=== PATIENT | female | born 2005 | race Caucasian/White ===

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

== ENCOUNTER 2025-06-22 13:09 | Emergency (ER) | payer BC, SELFPAY ==
[2025-06-22 13:58] LABS: Urine Character Clear (Clear)
[2025-06-22 13:59] LABS: HCG, Serum Qualitative Screen Negative
[2025-06-22 14:00] LABS: Hematocrit 40.6 % (37.0-47.0); Hemoglobin 14.1 g/dL (12.0-16.0); Mean Corp Hgb Conc. 34.7 g/dL (33.0-37.0); Mean Corpuscular Volume 87.1 fL (81.0-99.0); Nucleated Red Blood Cells % 0 %; Platelet Count 291 10^3/uL (130-400); Red Cell Dist. Width 11.8 % (11.5-14.5)
[2025-06-22 14:03] LABS: ALT (SGPT) 17 U/L (0-35); AST (SGOT) 46 U/L (14-36); Albumin 5.3 g/dl (3.5-5.0); Alkaline Phosphatase 50 U/L (38-126); Blood Urea Nitrogen 9 mg/dl (7-17); Calcium 10.0 mg/dl (8.4-10.2); Carbon Dioxide 19 mmol/L (22-30); Chloride 106 mmol/L (98-107); Glucose 106 mg/dl (70-99); Potassium 3.9 mmol/L (3.5-5.1); Sodium 137 mmol/L (135-145); Total Protein 8.9 g/dl (6.3-8.2); eGFR > 60.00
[2025-06-22 14:28] LABS: Urine Squamous Cell >30 /LPF (Few); Urine Urothelial Cell 0-2 /LPF (FEW)
[2025-06-22] MEDS: NSS 1000 IV (14:49)
[2025-06-22] MEDS: TORADOL 15 MG IV (14:50)
--- NOTE | 2025-06-22 15:04 | ED.GENMED ---
History of Present Illness
General
Chief Complaint: Back Pain
Time Seen by Provider: 06/22/25 14:13
History of Present Illness
History of Present Illness:
19-year-old female with history of kidney stones presents to the emergency department for evaluation of intense low back pain began last night associated with hot and cold chills. Reports waking up this morning with nausea vomiting and diarrhea.
Pain is severe, occasionally radiates up the back but is primarily located in the bilateral lower back. No lower extremity paresthesias. Denies any anterior abdominal pain, dysuria, or hematuria. No history abdominal surgeries. Last menstrual
cycle was nearly 1 month ago
Past History
Past History
ED Past Medical History: Asthma
ED Past Surgical History: None
Social History
Tobacco: Smoker
Alcohol: Occasional
Drug: Marijuana
Personal: Single
Living: with family
Review of Systems
Review of Systems
Allergies reviewed?: Yes
All Other Systems: ROS reviewed and negative except as documented in HPI and ROS
Phy Exam
Physical Exam
Physical Exam:
GEN: Well appearing, NAD, WDWN
HEENT: Oral mucosa moist, no scleral icterus
Cardiac: Tachycardic, regular
Lung: No respiratory distress, no tachypnea, lungs clear
Abdomen: Soft, grossly nontender, no rigidity or masses
MSK: No gross deformity or injuries. Tenderness elicited to the right paraspinous lumbar musculature, no CVA tenderness bilaterally
Skin: Good color, no pallor or jaundice, no rashes
Neuro: AO x3, moves all extremities freely
Psych: Calm, cooperative
Course
Orders/Labs/Results
Orders:
Orders
06/22/25 13:25
Test Result ONCE
06/22/25 13:36
Complete Blood Count/With Diff Urgent
Comprehensive Metabolic Panel Urgent
HCG, Serum Qualitative Screen Urgent
Urinalysis Reflex To Culture Urgent
Date Specimen was Collected: 06/22/25
Time Specimen was Collected: 13:25
Urine Microscopic Reflex Cult Urgent
Urine Culture Urgent
FIDELIA Source: U
Specimen Description:
Date Specimen was Collected: 06/22/25
Time Specimen was Collected: 13:25
06/22/25 14:41
0.9% Sodium Chloride 1000 ml [Nss] 1,000 ml IV BOLUS
Ketorolac [Toradol] 15 mg IV NOW STA
06/22/25 15:03
CT Abd/Pel (IV only)-DH only Urgent
Comment:
Reason For Exam: low back pain, fever
06/22/25 15:43
Morphine Sulfate 4 mg IV NOW STA
06/22/25 18:39
Urinalysis Reflex To Culture Urgent
Date Specimen was Collected: 06/22/25
Time Specimen was Collected: 18:33
Urine Microscopic Reflex Cult Urgent
06/22/25 20:02
Fosfomycin [Monurol] 3 gm PO ONCE ONE
06/22/25 20:13
Morphine Sulfate 4 mg IV NOW STA
06/22/25 20:31
Hydrocodone 5/APAP 325 [[place] 5/325] 1 tablet PO NOW STA
Abnormal Lab Results
06/22/25 06/22/25
13:36 18:39
Absolute Lymphs (auto) 0.2 L 10^3/uL
(1.2-3.4)
Neutrophils % 88.1 H %
(42.2-75.2)
Lymphocytes % 4.0 L %
(20.5-51.1)
Carbon Dioxide 19 L mmol/L
(22-30)
Glucose 106 H mg/dl
(70-99)
AST 46 H U/L
(14-36)
Total Protein 8.9 H g/dl
(6.3-8.2)
Albumin 5.3 H g/dl
(3.5-5.0)
Urine Ketones 3+ A 3+ A
(Negative) (Negative)
Urine RBC 3-6 A /HPF
(0-2)
Urine Bacteria (Reflex) Moderate A Few A
(Negative) (Negative)
Urine Albumin (Reflex) 2+ A 2+ A
(Neg - Trace) (Neg - Trace)
06/22/25 13:36
06/22/25 13:36
Vital Signs
Initial and Last Documented VS:
Initial Vital Signs
Temp Pulse Resp Pulse Ox
99.2 F 125 16 98
06/22/25 13:16 06/22/25 13:16 06/22/25 13:16 06/22/25 13:16
Last Documented Vital Signs
Temp Pulse Resp BP Pulse Ox
99.8 F 90 16 123/81 99
06/22/25 20:40 06/22/25 20:40 06/22/25 20:40 06/22/25 20:40 06/22/25 20:40
MDM/Problems Addressed
MDM/Problems Addressed:
Is patient's symptoms. She has no objective fever or [place] ptosis, imaging shows no evidence for acute abdominal pathology. While mesenteric adenitis is suggested, this does not fit with her presentation overall. She does have bacteriuria on
repeat urinalysis thus we will treat this as a potential UTI with a single dose of fosfomycin pending urine culture. She is overall clinically well but complaining of persistent low back pain. Low clinical suspicion at this time for vertebral
osteomyelitis or discitis. She is suitable for discharge home
*Pulse Oximetry
SaO2: 98
Oxygen Mode of Delivery: Room air
Patient hypoxic: no
*Critical Care Note
Total Time (30-74mins, 75-104mins- exclusive of procedures): Not Applicable
ED Attending Note
-
Portions of this chart may have been created with voice recognition software.� Occasional wrong word or��sound alike� substitutions may have occurred due to the inherent limitations of voice recognition software.
Discharge Plan
Departure
Patient Disposition: Home (Routine Discharge)
Date of Disposition: 06/22/25
Time of Disposition: 20:02
Patient with high blood pressure during this ER visit?: No
Discharge Problem:
Low back pain, Bacteriuria with pyuria
Instructions: Low Back Pain (DC)
Prescriptions:
New
hydrocodone-acetaminophen 5-325 mg tablet
1 tab PO Q6H PRN (Reason: pain) Qty: 8 0RF
No Action
sertraline [Zoloft] 100 mg Tablet
100 mg PO DAILY
albuterol sulfate 90 mcg/actuation Hfa Aerosol Inhaler
2 puff INHALATION QID PRN (Reason: SOB)
albuterol sulfate [ProAir HFA] 90 mcg/actuation HFA aerosol inhaler
2 puff inhalation Q4HPRN PRN (Reason: shortness of breath) Qty: 8.5 0RF
prednisone 50 mg tablet
50 mg PO DAILY Qty: 4 0RF
albuterol sulfate 2.5 mg/0.5 mL solution for nebulization
2.5 mg inhalation Q4H PRN (Reason: shortness of breath or wheezing) Qty: 30 0RF
oxycodone-acetaminophen [Percocet] 5-325 mg tablet
1 tab PO Q4HPRN PRN (Reason: pain) Qty: 13 0RF
tamsulosin [Flomax] 0.4 mg capsule
0.4 mg PO DAILY Qty: 7 0RF
Referrals:
Dhaval Kumar MD [Family Provider]
Stand Alone Forms: Back to School
Interventions
Interventions:
*General Assessment Last Done: 06/22/25 13:16
*Neglect/Abuse Screening Last Done: 06/22/25 13:16
*ED COVID-19 Vaccine History Last Done: 06/22/25 13:16
*ED Influenza Vaccine History Last Done: 06/22/25 13:16
[facility] Fall Risk Assessment Tool Last Done: 06/22/25 14:27
*Nursing Disposition Last Done: 06/22/25 20:40
ED-Musculoskeletal Assessment Last Done: 06/22/25 14:53
Discharge Date and Time
Discharge Date/Time: 06/22/25 20:50
Print Language: YI
[2025-06-22] MEDS: MORPHINE SULFATE 4 MG IV ×2 (16:06→20:18)
[2025-06-22 16:13] VITALS: BP 121/79
[2025-06-22 17:43] VITALS: BP 122/75
[2025-06-22 19:33] LABS: Urine Character Clear (Clear)
[2025-06-22 19:58] LABS: Urine Red Blood Cell 0-2 /HPF (0-2); Urine White Cell 0-2 /HPF (0-5)
[2025-06-22] MEDS: MONUROL 3 GM PO (20:19)
[2025-06-22] MEDS: NORCO 5/325 1 TABLET PO (20:34)
[2025-06-22 20:40] VITALS: BP 123/81
== END 2025-06-22 20:50 | disposition home or self-care (01) ==
LOC: EMR 13:09
PROVIDERS: Physician Assistant; EMERGENCY PHYSICIAN Emergency Medicine; FAMILY PHYSICIAN Pediatrics
DX: M54.50 Low back pain, unspecified (principal); R82.71 Bacteriuria; R82.81 Pyuria; J45.909 Unspecified asthma, uncomplicated; F17.200 Nicotine dependence, unspecified, uncomplicated; Z87.442 Personal history of urinary calculi
CPT/HCPCS: 99284; 96374; 96375; 96376; 96361; 74177; 80053; 81003; 81015; 84703; 85025; 87086; Q9967